=== PATIENT | female | born 2000 | race Caucasian/White ===

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

== ENCOUNTER 2022-07-25 09:21 | Emergency (ER) | payer OTHER ==
[2022-07-25 09:42] VITALS: BP 138/70; TEMP 97.7; BMI 27.8
[2022-07-25 11:27] LABS: BASO % 0.5 % (0-2.0); EOS % 2.2 % (0-4.5); HEMATOCRIT 33.3 % (32.4-45.2); LYMPH % 26.4 % (8-40); MCH 29.2 pg (25.7-33.7); MCHC 33.1 g/dl (32.0-36.0); MEAN CELL VOLUME 88.2 fl (80-96); MEAN PLT VOLUME 7.5 fl (7.5-11.1); MONO % 6.9 % (3.8-10.2); PLATELET COUNT 416 10^3/uL (134-434); RBC 3.77 M/mm3 (3.60-5.2); WHITE BLOOD COUNT 9.5 K/mm3 (4.0-10.0)
[2022-07-25 11:49] LABS: CHLORIDE 106 mmol/L (98-107); SODIUM 137 mmol/L (136-145)
[2022-07-25 11:52] LABS: ALBUMIN 3.8 g/dl (3.4-5.0); ANION GAP 6 MMOL/L (8-16); CALCIUM 8.5 mg/dL (8.5-10.1); CO2 25 mmol/L (21-32); GLUCOSE,RANDOM 95 mg/dL (74-106)
[2022-07-25 11:54] LABS: CREATININE 0.6 mg/dL (0.55-1.3)
[2022-07-25 11:55] LABS: SGOT/AST 28 U/L (15-37); SGPT/ALT 46 U/L (13-61)
[2022-07-25 11:56] LABS: HCG,QUALITATIVE URINE Negative; TOT PROT 7.5 g/dl (6.4-8.2)
[2022-07-25 11:57] LABS: BILIRUBIN,TOTAL 0.2 mg/dL (0.2-1)
[2022-07-25 11:58] LABS: ALK PHOS 113 U/L (45-117)
[2022-07-25 12:08] LABS: EPI CELLS 1 /uL (0-25.1); HYALINE CASTS 0 /uL (0-3.1); URINE APPEARANCE CLEAR; URINE BACTERIA 72 /uL (0-1359); URINE BILIRUBIN NEGATIVE (NEGATIVE); URINE COLOR YELLOW; URINE GLUCOSE (UA) NEGATIVE (NEGATIVE); URINE KETONE NEGATIVE (NEGATIVE); URINE LEUK ESTERASE 1+ (NEGATIVE); URINE NITRITE NEGATIVE (NEGATIVE); URINE PROTEIN 2+ (NEGATIVE); URINE RBC 108 /uL (0-23.9); URINE UROBILINOGEN 0.2 mg/dL (0.2-1.0); URINE WBC 0 /uL (0-25.8)
[2022-07-25 14:57] VITALS: PULSE 84; RESP 18
== END 2022-07-25 14:56 | disposition home or self-care (01) ==
LOC: JER 09:21
DX: N93.9 Abnormal uterine and vaginal bleeding, unspecified (principal)
CPT/HCPCS: 36415; 76830-TC; 80053; 81003; 84702; 84703; 85025; 86850; 86900; 86901; 87086; 99284-25

== ENCOUNTER 2022-10-27 09:36 | Emergency (ER) | payer OTHER ==
[2022-10-27 09:45] VITALS: BP 131/74; PULSE 116; RESP 18; TEMP 98.3; BMI 27.3
== END 2022-10-27 11:21 | disposition home or self-care (01) ==
LOC: JERFT 09:36 → JER 09:36 → JERFT 11:21
DX: M25.562 Pain in left knee (principal); R11.0 Nausea
CPT/HCPCS: 84703; 99283-25